=== PATIENT | female | born 1990 | race Caucasian/White ===

== ENCOUNTER 2017-05-07 06:06 | Emergency (ER) | payer BC ==
[~2017-05-07] VITALS: Ht 162.6 cm; Wt 78.0 kg
[~2017-05-07 06:06] MED LIST: ACET500C5 PO; BEN25 PO; CYCL-319 PO; EPIN0.3P4 INJ; PRED50TA PO; TYLENOL COLD AND FLU
[2017-05-07 06:12] VITALS: Ht 162.6 cm; Wt 78.0 kg
[2017-05-07] MEDS ORDERED: IBUPROFEN 600 MG TAB PO ONE (07:00)
--- NOTE | 2017-05-07 08:01 | RADRPT ---
PROCEDURE: XR Right Ankle 3 Views. CLINICAL INDICATION: Right ankle pain and trauma. TECHNIQUE: AP, oblique and lateral views of the right ankle was performed. COMPARISON: None. FINDINGS: The osseous structures are intact. No destructive bony lesions are observed. Interosseous spaces a ppear normal. Soft tissue swelling is seen over the lateral malleolus. IMPRESSION: Soft tissue swelling over the lateral malleolus. Ligamentous and tendinous injury is not excluded. If characterization of the ligaments and tendons is needed MRI is recommended. If there is high clinical suspicion for bony traumatic injury, further evaluation with CT should be considered. RPTAT: AA .Talha Mcclendon MD, MD Date Time Electronically viewed and signed by .Talha Mcclendon MD, on 05/07/2017 08:01 .P/
--- NOTE | 2017-05-07 08:28 | ERD ---
ER Documentation Chief Complaint Date/Time DATE: 05/07/17 TIME: 08:27 Chief Complaint sp fall from 10 steps stairs, right foot pain, swelling, no loc HPI This 26-year-old female presents with right ankle pain after slipping down some stairs yesterday. She has pain with ambulation and bruising and swelling on the right ankle. She denies any foot pain or knee pain or head injury, neck pain or weakness. ROS All systems reviewed and are negative except as per history of present illness. Medications Home Meds Active Scripts Epinephrine (Epipen 2-Conner) 0.3 Mg/0.3 Ml Pen.injctr, 1 EA INJ ONCE Y for ALLERGIC REACTION, #1 EA Prov:BRYSON FIGUEROA NP 10/01/15 Diphenhydramine Hcl* (Benadryl*) 25 Mg Cap, 25 MG PO Q6, #30 CAP Prov:BRYSON FIGUEROA AFFILIATE MARKETING MANAGER 10/01/15 Acetaminophen* (Tylophen*) 500 Mg Capsule, 1 CAP PO Q6H Y for PAIN AND OR ELEVATED TEMP, #20 CAP Prov:BRYSON FIGUEROA NP 10/01/15 Diphenhydramine Hcl* (Benadryl*) 25 Mg Cap, 25 MG PO Q6H Y for ITCHING, #30 CAP Prov:BRYSON FIGUEROA AFFILIATE MARKETING MANAGER 09/22/15 Prednisone* (Prednisone*) 50 Mg Tablet, 50 MG PO DAILY for 5 Days, TAB Prov:BRYSON FIGUEROA NP 09/22/15 Cyclobenzaprine Hcl* (Cyclobenzaprine Hcl*) 10 Mg Tablet, 10 MG PO QHS for 7 Days, TAB Prov:REBECCA YUEN PA-C 06/16/15 Reported Medications [none] Unknown Strength No Conflict Check 09/22/15 [Tylenol Cold And Flu] No Conflict Check 03/30/13 Allergies Allergies: Coded Allergies: No Known Drug Allergy (Verified Allergy, Unknown, 05/07/17) PMhx/Soc Medical and Surgical Hx: pt denies Medical Hx History of Surgery: Yes ( section) Anesthesia Reaction: No Hx Neurological Disorder: No Hx Respiratory Disorders: No Hx Cardiac Disorders: No Hx Psychiatric Problems: No Hx Miscellaneous Medical Probl: No Hx Alcohol Use: No Hx Substance Use: No Hx Tobacco Use: No Smoking Status: Never smoker Physical Exam Vitals Vital Signs Date Time Temp Pulse Resp B/P Pulse Ox O2 Delivery O2 Flow Rate FiO2 05/07/17 06:12 98.3 76 20 129/60 98 Physical Exam Const: [], [id number]. Head: Atraumatic Eyes: Normal Conjunctiva ENT: Normal External Ears, Nose and Mouth. Neck: Full range of motion..~ No meningismus. Resp: Clear to auscultation bilaterally Cardio: Regular rate and rhythm, no murmurs Abd: Soft, non tender, non distended. Normal bowel sounds Skin: No petechiae or rashes Back: No midline or flank tenderness Ext: No cyanosis, or edema there is some tenderness and bruising around the right lateral malleolus and ankle joint. There is no appreciable foot or metatarsal tenderness and no knee or tib-fib tenderness. Neur: Awake and alert Psych: Normal Mood and Affect Results 24 hrs Current Medications Medications (Trade) Dose Ordered Sig/[place] Route PRN Reason Start Time Stop Time Status Last Admin Dose Admin Ibuprofen (Motrin) 600 mg ONCE ONCE PO 05/07/17 07:00 05/07/17 07:01 DC 05/07/17 06:56 Procedures/MDM X-ray right ankle 3V Interpreted by me: Bones: [No fracture] Joints: No dislocation. Impression-normal right ankle x-ray with only soft tissue swelling Patient was placed in the right ankle Lamin bandage and crutches with crutch training. Patient has signs and symptoms of right ankle sprain without signs of fracture, dislocation, ischemia, infection, deficits. She will be treated with ibuprofen, ice and elevation and primary care follow-up and return precautions. REBECCA MENDIETA MD May 07, 2017 08:28
[2017-05-07] MEDS ORDERED: IBUP-1542 PO (08:29)
[2017-05-07 09:02] VITALS: BP 122/60; PULSE 78; RESP 19; TEMP 98.2
== END 2017-05-07 09:03 | disposition home or self-care (01) ==
LOC: FTE 06:06
DX: S99.911A Unspecified injury of right ankle, initial encounter (principal); W10.9XXA Fall (on) (from) unspecified stairs and steps, initial encounter; Y92.9 Unspecified place or not applicable
CPT/HCPCS: 73610; 99283; Z7610

== ENCOUNTER 2017-11-29 11:27 | Emergency (ER) | END 2017-11-29 14:15 | disposition home or self-care (01) ==

== ENCOUNTER 2018-05-02 16:44 | Emergency (ER) | END 2018-05-02 19:13 | disposition home or self-care (01) ==

== ENCOUNTER 2019-02-02 21:50 | Emergency (ER) | payer BC ==
[~2019-02-02] VITALS: Wt 90.0 kg
[~2019-02-02 21:50] MED LIST changes: -CYCL-319 PO; +CYCL10TA7 PO; +DOCU-144 PO; +FIORICET PO; +HYDR25SU23 PR; +IBUP-1542 PO; +NITR-58 PO; +POLY10DR19 RIGHT EYE
--- NOTE | 2019-02-03 00:32 | ERD ---
ER Documentation Chief Complaint Chief Complaint nausea and intermittent vomiting for past few wks. 13 wks preg. no vb HPI This is a 28-year-old female who is 13 weeks and she is complaining of a month of off-and-on sharp left lower quadrant pain. She has occasional morning sickness nausea vomiting is nonbilious nonbloody. No diarrhea. No vaginal bleeding or vaginal discharge. No loss of water from her [place]. No fever no dysuria ROS All systems reviewed and are negative except as per history of present illness. Medications Home Meds Active Scripts Polymyxin B Sulfate-TMP* (Polymyxin B-TMP Eye Drops*) 10 Ml Drops, 1 DROP RIGHT EYE QID for 7 Days, EA Prov:BENJAIMN LIN PA-C 05/02/18 Acetamin/Butalbital/Caffeine* (Fioricet*) [id number] Tab, 1 TAB PO Q6H PRN for PAIN, #7 TAB Prov:BENJAMIN LIN PA-C 05/02/18 Nitrofurantoin Monohyd Macrocr* (Macrobid*) 100 Mg Capsr, 100 MG PO BID for 5 Days, CAP Prov:BENJAMIN LIN PA-C 05/02/18 Hydrocortisone Acetate (Anusol-Hc) 25 Mg Supp.rect, 1 SUPP ID QHS PRN for HEMORROID PAIN/ITCHING, #12 SUPP.RECT Prov:PK DUKE PA-C 11/29/17 Acetaminophen* (Tylophen*) 500 Mg Capsule, 1 CAP PO Q4 PRN for PAIN AND OR ELEVATED TEMP, #30 CAP Prov:PK DUKE PA-C 11/29/17 Docusate Sodium* (Colace*) 100 Mg Capsule, 100 MG PO TID, #30 CAP Prov:PK DUKE PA-C 11/29/17 Ibuprofen* (Motrin*) 600 Mg Tab, 600 MG PO Q6, #20 TAB Prov:REBECCA MENDIETA MD 05/07/17 Epinephrine (Epipen 2-Conner) 0.3 Mg/0.3 Ml Pen.injctr, 1 EA INJ ONCE PRN for ALLERGIC REACTION, #1 EA Prov:BRYSON FIGUEROA NP 10/01/15 Diphenhydramine Hcl* (Benadryl*) 25 Mg Cap, 25 MG PO Q6, #30 CAP Prov:BRYSON FIGUEROA NURSE INFORMATICS EDUCATOR 10/01/15 Acetaminophen* (Tylophen*) 500 Mg Capsule, 1 CAP PO Q6H PRN for PAIN AND OR ELEVATED TEMP, #20 CAP Prov:BRYSON FIGUEROA. NURSE INFORMATICS EDUCATOR 10/01/15 Diphenhydramine Hcl* (Benadryl*) 25 Mg Cap, 25 MG PO Q6H PRN for ITCHING, #30 CAP Prov:BRYSON FIGUEROA. NURSE INFORMATICS EDUCATOR 09/22/15 Prednisone* (Prednisone*) 50 Mg Tablet, 50 MG PO DAILY for 5 Days, TAB Prov:BRYSON FIGUEROA. NURSE INFORMATICS EDUCATOR 09/22/15 Cyclobenzaprine Hcl* (Cyclobenzaprine Hcl*) 10 Mg Tablet, 10 MG PO QHS for 7 Days, TAB Prov:REBECCA YUEN PA-C 06/16/15 Reported Medications [none] Unknown Strength No Conflict Check 09/22/15 [Tylenol Cold And Flu] No Conflict Check 03/30/13 Allergies Allergies: Coded Allergies: No Known Drug Allergy (Verified Allergy, Unknown, 05/02/18) PMhx/Soc History of Surgery: Yes ( X2) Anesthesia Reaction: No Hx Neurological Disorder: No Hx Respiratory Disorders: No Hx Cardiac Disorders: No Hx Psychiatric Problems: Yes (anxiety) Hx Miscellaneous Medical Probl: No Hx Alcohol Use: No Hx Substance Use: No Hx Tobacco Use: No Smoking Status: Never smoker FmHx Family History: No coronary disease Physical Exam Vitals Vital Signs Date Temp Pulse Resp B/P (MAP) Pulse Ox O2 O2 Flow FiO2 Time Delivery Rate 02/02/19 78 26 113/69 100 Room Air 23:30 (84) 02/02/19 77 22 106/74 100 Room Air 23:00 (85) 02/02/19 98.3 91 18 130/88 98 21:53 (102) Physical Exam Const: Well-developed, well-nourished Head: Atraumatic, normocephalic Eyes: Normal Conjunctiva, PERRLA, EOMI, normal sclera, no nystagmus ENT: Normal External Ears, Nose and Mouth, moist mucus membranes. Neck: Full range of motion. No meningismus, no lymphadenopathy. Resp: Clear to auscultation bilaterally, no wheezing, rhonchi, rales Cardio: Regular rate and rhythm, no murmurs, S1 S2 present Abd: Soft, mild left lower quadrant tenderness/adnexal, non distended. Normal bowel sounds, no guarding or rebound, no pulsitile abdominal masses or bruits Skin: No petechiae or rashes, no ecchymosis , no maculopapular rash Back: No midline or flank tenderness Ext: No cyanosis, or edema, FROM x 4, normal inspection, neurovascularly intact x 4 Neur: Awake and alert, STR 5/5 x 4, sensation intact x 4, no focal findings, cerebellum intact Psych: Normal Mood and Affect Procedures/[place] [id number] Radiology Main Line: [phone] DIAGNOSTIC IMAGING REPORT Patient: ROSAMARIA GUTIERREZ : 1990 Age: 28 Sex: F MR #: [id number] DOS: 02/02/19 2318 Ordering MD: BRYN MERINO DO Location: E/R Room/Bed: PROCEDURE: US OB. CLINICAL INDICATION: pain TECHNIQUE: Transabdominal views of the pelvis are available for review. COMPARISON: No prior studies are available for comparison. FINDINGS: There is a single intrauterine gestation with the crown-rump length measuring 6.7 cm, corresponding to a gestational age of 13 weeks and 0 days. The heart rate is noted at 154 bpm. The ovaries are normal in size and echogenicity. Normal Doppler flow is identified in both ovaries. The right ovary measures 2.4 x 1.9 cm. The left ovary measures 3.0 x 1.2 cm. There is no free fluid. RPTAT: AA IMPRESSION: Single live intrauterine with an estimated gestational age of 13 weeks and 0 days, based on ultrasound measurements. YARELY based on ultrasound measurements is 08/10/19. .Joao Fuentes MD, MD Date Time Electronically viewed and signed by .Joao Fuentes MD, on 02/03/2019 00:25 .S/ CC: BRYN MERINO DO [id number] Patient is having likely some ligament pain from . She is not having any miscarriage at this time there is a normal IUP with no vaginal bleeding at all. I have her to bed rest for a few days and follow-up with her OB Departure Diagnosis: Primary Impression: related abdominal pain of lower quadrant, antepartum Condition: Stable BRYN MERINO DO Feb 03, 2019 00:32
[2019-02-03 01:30] VITALS: BP 99/72; PULSE 74; RESP 20
== END 2019-02-03 01:46 | disposition home or self-care (01) ==
LOC: E/R 21:50
DX: O26.891 Other specified pregnancy related conditions, first trimester (principal); R10.32 Left lower quadrant pain; R40.2142 Coma scale, eyes open, spontaneous, at arrival to emergency department; R40.2252 Coma scale, best verbal response, oriented, at arrival to emergency department; R40.2362 Coma scale, best motor response, obeys commands, at arrival to emergency department; Z3A.13 13 weeks gestation of pregnancy
CPT/HCPCS: 76801; 84702; 86900; 86901